=== PATIENT | male | born 1995 | race Caucasian/White ===

== ENCOUNTER 2020-10-07 13:03 | Emergency (ER) | payer OTHER, SELFPAY ==
[2020-10-07 13:16] VITALS: BP 121/71; PULSE 69; RESP 20; TEMP 37.1; O2SAT 99
--- NOTE | 2020-10-07 13:20 | ED.SKABFB ---
HPI - Skin/Abscess/Foreign Bdy General Chief complaint: Allergic Reaction Stated complaint: rash,swollen neck Time Seen by Provider: 10/07/20 13:26 Source: patient and RN notes reviewed Mode of arrival: ambulatory Limitations: no limitations History of Present Illness HPI narrative: 25-year-old male presents concern for it being a rash on his upper chest, bilaterally. Reports swelling on the outside of his neck, front side. He denies swollen lips, swollen tongue, difficulty swallowing, shortness of breath, nausea, diarrhea, vomiting. Denies any known triggers. Denies any new medicines, household products, skin care products. Denies any intervention. MD complaint: rash Related Data Home Medications Medication Instructions Recorded Confirmed finasteride [Propecia] mg 10/07/20 Allergies Allergy/AdvReac Type Severity Reaction Status Date / Time No Known Allergies Allergy Verified 10/07/20 13:27 Review of Systems Review of Systems: Narrative: CONSTITUTIONAL: Denies malaise, chills, sweats, or fever. EYES: Denies visual changes, redness, or discharge. ENT: Denies rhinorrhea, congestion, sinus pain, otalgia or sore throat. CARDIOVASCULAR: Denies chest pain, palpitations, or edema. RESPIRATORY: Denies cough or dyspnea. GASTROINTESTINAL: Denies abdominal pain, nausea, vomiting, diarrhea SKIN: Reports itchy rash on the chest MUSCULOSKELETAL: Denies myalgia. NEUROLOGIC: Denies numbness, weakness, or headache. All systems reviewed & are unremarkable except as noted in HPI and below PMFSH Comments At time of signature, agree with nursing past medical, surgical, social and family history. There is no relevant family history pertinent to the presenting complaint Exam Narrative: Exam Narrative: GENERAL: Well-appearing, well-nourished, and in no acute distress. HEAD: Normocephalic, atraumatic. EYES: PERRLA, conjunctivae clear, and EOMI. ENT: Mucous membranes moist. Oropharynx without edema, erythema or lesions. NECK: Supple. No lymphadenopathy. No swelling noted CHEST: Clear to auscultation. No respiratory distress. HEART: Regular rate and rhythm. SKIN: Warm, dry. Patch of erythema noted to the front chest with 3-5 satellite lesions to the neck NEURO: Alert and oriented x3. PSYCH: Normal mood and affect Course Course Emergency Course: Patient is aware of diagnosis, understands and agrees to treatment plan. Anticipatory guidance given. Patient agrees to follow-up as directed and is aware of reasons to seek care at the emergency department. Portions of this record may have been created with voice recognition software Vital Signs Vital signs: Vital Signs Temperature 98.8 F 10/07/20 13:16 Pulse Rate 69 10/07/20 13:16 Respiratory Rate 20 10/07/20 13:16 Blood Pressure 121/71 10/07/20 13:16 Pulse Oximetry 99 10/07/20 13:16 Temperature 98.8 F 10/07/20 13:16 Pulse Rate 69 10/07/20 13:16 Respiratory Rate 20 10/07/20 13:16 Blood Pressure 121/71 10/07/20 13:16 Pulse Oximetry 99 10/07/20 13:16 Reviewed. MDM - Skin/Abscess/Foreign Bdy MDM Narrative Medical decision making narrative: Does not appear at this time to be erythema multiforme, bullous, SJS, TEN; no evidence at this time to suggest RMSF, endocarditis or Lyme disease; patient looks well, nontoxic and is tolerating oral intake; no neurologic signs or symptoms; no headache, photophobia or neck pain; afebrile; appropriate for initial outpatient treatment; discussed the importance of follow-up, patient agrees; question, viral exanthema, contact dermatitis, allergic dermatitis, eczema, urticaria, shingles. No soft palate or uvula edema, no tongue, lip edema or other mucosal involvement, no respiratory compromise, no stridor, no wheezing, no wheezing, no history of syncope, no hypotension, no nausea, vomiting, or diarrhea. Instructed patient to go to nearest ER immediately for any worsening symptoms including but not limited to: fever, spr
== END 2020-10-07 13:45 | disposition home or self-care (01) ==
PROVIDERS: Emergency Provider Nurse Practitioner
DX: L50.9 Urticaria, unspecified (principal)
CPT/HCPCS: 99203; G0463

== ENCOUNTER 2023-06-12 22:52 | Emergency (ER) | payer OTHER, SELFPAY ==
[2023-06-12 23:19] VITALS: BP 127/78; PULSE 84; RESP 15; TEMP 37.1; O2SAT 98
--- NOTE | 2023-06-12 23:49 | ED.GENADULT ---
HPI - General Adult General Chief complaint: Unspecified Time Seen by Provider: 06/12/23 23:17 Source: patient Mode of arrival: ambulatory Limitations: no limitations History of Present Illness HPI narrative: Patient is a 27-year-old male presents to the ED with report of a needlestick. 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 Presents for needlestick laboratory testing. No known medical problems of the source patient. Blood work was obtained from the source patient. No other injuries or concerns. Related Data Home Medications Medication Instructions Recorded Confirmed finasteride 1 mg tablet (Propecia) mg 10/07/20 Allergies Allergy/AdvReac Type Severity Reaction Status Date / Time No Known Allergies Allergy Verified 10/07/20 13:27 Review of Systems Review of Systems: CONSTITUTIONAL: Denies fever, chills, or sweats. SKIN: See HPI All systems reviewed & are unremarkable except as noted in HPI and below Exam Narrative: GENERAL: Well appearing, well-nourished, non-toxic, in no acute distress. HEAD: Normocephalic, atraumatic. RESPIRATORY: Airway patent, respirations nonlabored. CARDIOVASCULAR: Regular rate and rhythm. MUSCULOSKELETAL: Moves all extremities. No gross deformities. SKIN: Warm, dry, normal color. NEURO: A&O X3. Speech clear. Pinpoint puncture wound to left 2nd digit finger pad, no active bleeding. PSYCHIATRIC: Appropriate mood and affect. Normal interaction. Course Vital Signs Vital signs: Vital Signs Temperature 98.8 F 06/12/23 23:19 Pulse Rate 84 06/12/23 23:19 Respiratory Rate 15 06/12/23 23:19 Blood Pressure 127/78 06/12/23 23:19 Pulse Oximetry 98 06/12/23 23:19 Oxygen Delivery Room Air 06/12/23 23:19 Temperature 98.8 F 06/12/23 23:19 Pulse Rate 84 06/12/23 23:19 Respiratory Rate 15 06/12/23 23:19 Blood Pressure 127/78 06/12/23 23:19 Pulse Oximetry 98 06/12/23 23:19 Oxygen Delivery Room Air 06/12/23 23:19 Medical Decision Making MDM Narrative Medical decision making narrative: Patient presented for needlestick evaluation. Pinpoint puncture wound noted on exam. No active bleeding or need for repair. Laboratory testing obtained. Patient was able to obtain blood work from source patient as well. Advised close follow-up with PCP. Medical Records Medical records reviewed: Yes I reviewed the external patient's medical records. Vital Signs Vital Signs: Vital Signs Temperature 98.8 F 06/12/23 23:19 Pulse Rate 84 06/12/23 23:19 Respiratory Rate 15 06/12/23 23:19 Blood Pressure 127/78 06/12/23 23:19 Pulse Oximetry 98 06/12/23 23:19 Oxygen Delivery Room Air 06/12/23 23:19 Temperature 98.8 F 06/12/23 23:19 Pulse Rate 84 06/12/23 23:19 Respiratory Rate 15 06/12/23 23:19 Blood Pressure 127/78 06/12/23 23:19 Pulse Oximetry 98 06/12/23 23:19 Oxygen Delivery Room Air 06/12/23 23:19 Lab Data Lab results reviewed: Yes I reviewed the patient's lab results. Labs: Lab Results 06/12/23 Range/Units 23:22 Hep Bs Antibody Pending Hepatitis C Ab Screen Pending HIV 1&2 Ab/P24 Ag 4thGn Pending Discharge Plan Discharge Clinical Impression: Needle stick injury of finger of left hand Patient Disposition: Home, Self-Care Condition: Stable Instructions: Antibiotic Form, Needle Stick Injuries (ED) Additional Instructions: Follow-up with your primary care doctor for further evaluation and repeat laboratory testing. Prescriptions: No Action triamcinolone acetonide 0.1 % cream 1 applic TOPICAL BID 7 Days Qty: 80 0RF finasteride [Propecia] 1 mg Tablet Follow-up/Referrals: UNKNOWN,DOCTOR [Primary Care Provider] - Time of Disposition: 23:24
[2023-06-13 00:31] LABS: HIV 1/2 Ab P24 Ag Result Negative (Negative); Hepatitis B Surface Anti Res Positive; Hepatitis C Virus Antibody Negative (Negative)
== END 2023-06-12 23:35 | disposition home or self-care (01) ==
PROVIDERS: Emergency Medicine; Emergency Provider Physician Assistant
DX: S61.231A Puncture wound without foreign body of left index finger without damage to nail, initial encounter (principal); W46.1XXA Contact with contaminated hypodermic needle, initial encounter
CPT/HCPCS: 36415; 86703; 86706; 86803; 99283; G0432